=== PATIENT | male | born 1935 | race Caucasian/White ===

== ENCOUNTER 2021-09-19 15:43 | Emergency (ER) | payer OTHER, MEDICARE ==
[2021-09-19 16:27] LABS: HEMOGLOBIN 10.6 gm/dl (14.0-17.5); RED BLOOD COUNT 3.5 M/UL (4.20-5.50); WHITE BLOOD COUNT 8.6 K/UL (4.5-11.0)
== END 2021-09-20 04:55 | disposition home or self-care (01) ==
LOC: ER1 15:43
PROVIDERS: Physician Assistant
DX: T83.038A Leakage of other urinary catheter, initial encounter (principal); I12.9 Hypertensive chronic kidney disease with stage 1 through stage 4 chronic kidney disease, or unspecified chronic kidney disease; N18.9 Chronic kidney disease, unspecified; N13.9 Obstructive and reflux uropathy, unspecified; N13.2 Hydronephrosis with renal and ureteral calculous obstruction; K57.30 Diverticulosis of large intestine without perforation or abscess without bleeding; Z20.822 Contact with and (suspected) exposure to COVID-19; Z87.438 Personal history of other diseases of male genital organs; Z96.0 Presence of urogenital implants; Y83.8 Other surgical procedures as the cause of abnormal reaction of the patient, or of later complication, without mention of misadventure at the time of the procedure
CPT/HCPCS: 51702; 51798; 80053; 81001; 85025; 87077; 87086; 87186; 96374; 99284; J0696; U0002

== ENCOUNTER 2021-10-10 12:32 | Emergency (ER) | payer OTHER, MEDICARE ==
[2021-10-10 13:20] LABS: HEMOGLOBIN 9.8 gm/dl (14.0-17.5); RED BLOOD COUNT 3.14 M/UL (4.20-5.50); WHITE BLOOD COUNT 7.9 K/UL (4.5-11.0)
== END 2021-10-10 19:15 | disposition home or self-care (01) ==
LOC: ER1 12:32
PROVIDERS: Family Medicine
DX: T83.098A Other mechanical complication of other urinary catheter, initial encounter (principal); D64.9 Anemia, unspecified; R33.9 Retention of urine, unspecified; N18.9 Chronic kidney disease, unspecified; Z87.891 Personal history of nicotine dependence; Z79.82 Long term (current) use of aspirin
CPT/HCPCS: 80053; 81001; 85025; 99284

== ENCOUNTER 2021-10-15 17:42 | Inpatient (IN) | payer OTHER, MEDICARE ==
[~2021-10-15] VITALS: Ht 188 cm; Wt 72.6 kg
[2021-10-15 19:29] LABS: HEMOGLOBIN 10.9 gm/dl (14.0-17.5); RED BLOOD COUNT 3.54 M/UL (4.20-5.50); WHITE BLOOD COUNT 4.8 K/UL (4.5-11.0)
[2021-10-16] MEDS ORDERED: ASPIRIN EC81 MG PO (11:48)
[2021-10-16] MEDS ORDERED: FINASTERIDE5 MG PO (11:48)
[2021-10-16] MEDS ORDERED: DILTIAZEM 24HR240 M1 PO (11:48)
[2021-10-16] MEDS ORDERED: ISOSORBIDE MONO30 MG PO (11:49)
[2021-10-16] MEDS ORDERED: LEVOTHYROXINE50 MCG PO (11:49)
[2021-10-16] MEDS ORDERED: FLOMAX 0.4 MG0.4 MG PO (11:53)
[2021-10-17 03:25] LABS: HEMOGLOBIN 11.2 gm/dl (14.0-17.5); RED BLOOD COUNT 3.67 M/UL (4.20-5.50)
[2021-10-17 03:28] LABS: WHITE BLOOD COUNT 2.3 K/UL (4.5-11.0)
--- NOTE | 2021-10-17 17:34 | NUR ---
WHILE ON 3 E[address], PATIENT HAD A CONFUSED MOMENT AND BROKE HIS CATHETER, SO NO UOP DOCUMENTED FROM THEM DUE TO INABILITY TO MEASURE. DR KERN AWARE THAT THIS IS WHY NO UOP DOCUMENTED. PUT IN CONSULT FOR NEPHRO DUE TO MINIMAL TO NO UOP AND STAGE FOUR KIDNEY DISEASE.
[2021-10-19 04:16] LABS: RED BLOOD COUNT 3.05 M/UL (4.20-5.50); WHITE BLOOD COUNT 3.2 K/UL (4.5-11.0)
--- NOTE | 2021-10-21 14:11 | NUR ---
1410: PATIENT HAS BEEN DIFFICULT TO CONTROL SINCE APPROXIMATELY 0930. iT WORSEN TO THE POINT WITH LOW OXYGENATION LEVELS AT 1100, THAT RN HAD TO REQUEST SOMETHING FOR SEDATION. PATIENT APPEARS UNAFFECTED BY GEODONE 10 MG IM GIVEN AROUND 1100. SITTER HAS TO BE RIGHT BESIDE PATIENT TO KEEP OXYGEN INTACT AND PREVENT PATIENT DESATS. WILL CONTINUE TO MONITOR.
--- NOTE | 2021-10-21 16:11 | NUR ---
1530: RN DISCUSSED WITH DR KERN THE ACCURACY OF PATIENT'S SPO2 MONITORING, SPO2 NOTED 81 - 88% WHEN PATIENT WILL ACTUALLY KEEP SPO2 PROBE ON. PROBE WAS PLACED ON EAR, FINGER, FOREHEAD AND GREAT TOE WHICH HAS AN ABNORMALLY THICK NAILBED, IN AN EFFORT TO OBTAIN BETTER READING. PATIENT IS WARM, DRY AND PALE PINK, MUCOUS MEMBRANES ARE PINK, NO CYNOSIS NOTED AT ALL, PATIENT WITHOUT SHORTNESS OF AIR OR LABORED BREATHING. YELLING LOUDLY, TO DENOTE STRONG LUNG VOLUMES. WILL CONTNUE TO MONITOR. ONE TO ONE SITTER TO REMAIN IN PLACE.
[2021-10-22 08:00] LABS: HEMOGLOBIN 10.9 gm/dl (14.0-17.5); RED BLOOD COUNT 3.68 M/UL (4.20-5.50); WHITE BLOOD COUNT 8.1 K/UL (4.5-11.0)
--- NOTE | 2021-10-22 11:46 | NUR ---
RN AND STAFF UNABLE TO GET PATIENT TO TAKE ANYTHING BY MOUTH. MD AWARE. IV BP MEDS PRN NOW AVAILABLE.
[2021-10-23 06:16] LABS: HEMOGLOBIN 10.7 gm/dl (14.0-17.5); RED BLOOD COUNT 3.53 M/UL (4.20-5.50); WHITE BLOOD COUNT 9.9 K/UL (4.5-11.0)
--- NOTE | 2021-10-23 15:27 | NUR ---
PATIENT CONTINUES TO REFUSE TO TAKE ANYTHING BY MOUTH INCLUDING FOOD, DRINK, AND MEDICATIONS. PATIENT ALSO REPEATEDLY REMOVES HIGH FLOW NASAL CANNULA AND OXYGEN SATURATION DROPS INTO LOW 70'S IF REMOVED. STAFF MUST REAPPLY OXYGEN NEEDED. SITTER IN PLACE. RN NOTIFIED MD OF PATIENT'S CONTINUED REFUSAL OF CARE. MD VERBALIZED UNDERSTANDING. NO NEW ORDERS NOTED.
[2021-10-24 14:14] LABS: A/G RATIO 1.3 (0.7-1.7); ALBUMIN 3.3 g/dL (2.9-4.4); ALPHA-1-GLOBULIN 0.3 g/dL (0.0-0.4); ALPHA-2-GLOBULIN 0.7 g/dL (0.4-1.0); BETA GLOBULIN 0.8 g/dL (0.7-1.3); GAMMA GLOBULIN 0.8 g/dL (0.4-1.8); GLOBULIN, TOTAL 2.6 g/dL (2.2-3.9); IMMUNOFIXATION RESULT, SERUM Comment: (.); IMMUNOGLOBULIN A, QN, SERUM 430 mg/dL (61-437); IMMUNOGLOBULIN G, QN, SERUM 875 mg/dL (603-1613); IMMUNOGLOBULIN M, QN, SERUM 52 mg/dL (15-143); M-SPIKE Not Observed g/dL (Not Observed); PROTEIN, TOTAL, SERUM 5.9 g/dL (6.0-8.5)
--- NOTE | 2021-10-26 12:30 | NUR ---
1210- NOTIFIED DR SILVER OF PATIENT NOTED LETHARGIC. VITAL SIGNS WITHIN NORMAL LIMITS. MD STATED WOULD PUT IN FOR HEAD CT. WILL CONTINUE TO MONITOR.
--- NOTE | 2021-10-26 14:37 | NUR ---
1342- NOTIFIED DR SILVER OF PATIENT TEMP READING 93.4 RECTAL AT THIS TIME AND CONTINUE OF PATIENT BEING LETHARGIC. NEW ORDER FOR DMITRY JUSTIN AND BEBETO AT THIS TIME. PULMONARY CONSULT ORDERED.
--- NOTE | 2021-10-26 15:52 | NUR ---
@1400 DMITRY HUGGER PLACED ON PATIENT PER MD ORDER WCTM
--- NOTE | 2021-10-27 09:00 | NUR ---
PATIENT'S GUTIERREZ CATH HAD COME UNHOOKED, SOME URINE LEAKED IN THE BED AND NOT MEASURED.
--- NOTE | 2021-10-27 12:25 | NUR ---
SPOKE WITH PATIENT'S FAMILY ABOUT STATUS AND PLAN OF CARE.
--- NOTE | 2021-10-28 18:18 | NUR ---
FAMILY CAME TO STAY AT PATIENT'S BEDSIDED. I UPDATED HIM ON THE PATIENT'S STATUS AND PLAN OF CARE.
== END 2021-10-29 11:14 | disposition expired | DRG 177 ==
LOC: ER1 17:42 → MED SURG 4 10-16 02:39 → CDU 10-16 02:39 → 3 EAST 10-16 02:39 → MED SURG 4 10-17 16:20
PROVIDERS: Internal Medicine; Internal Medicine Nephrology; Physician Assistant; ADMIT Internal Medicine
PROC: 3E0333Z Introduction of Anti-inflammatory into Peripheral Vein, Percutaneous Approach (ICD-10-PCS; principal; 2021-10-16)
PROC: 8E0ZXY6 Isolation (ICD-10-PCS; 2021-10-16)
PROC: B24BZZ4 Ultrasonography of Heart with Aorta, Transesophageal (ICD-10-PCS; 2021-10-17)
PROC: 5A0935A Assistance with Respiratory Ventilation, Less than 24 Consecutive Hours, High Flow/Velocity Cannula (ICD-10-PCS; 2021-10-17)
DX: U07.1 COVID-19 (principal); J80 Acute respiratory distress syndrome; J12.82 Pneumonia due to coronavirus disease 2019; G93.41 Metabolic encephalopathy; N17.9 Acute kidney failure, unspecified; N18.4 Chronic kidney disease, stage 4 (severe); E87.2 Acidosis; I48.20 Chronic atrial fibrillation, unspecified; E87.1 Hypo-osmolality and hyponatremia; N13.30 Unspecified hydronephrosis; I13.0 Hypertensive heart and chronic kidney disease with heart failure and stage 1 through stage 4 chronic kidney disease, or unspecified chronic kidney disease; Z66 Do not resuscitate; R31.9 Hematuria, unspecified; E87.6 Hypokalemia; I08.3 Combined rheumatic disorders of mitral, aortic and tricuspid valves; N40.0 Benign prostatic hyperplasia without lower urinary tract symptoms; J40 Bronchitis, not specified as acute or chronic; I50.9 Heart failure, unspecified; Z79.01 Long term (current) use of anticoagulants; Z87.442 Personal history of urinary calculi; Z87.891 Personal history of nicotine dependence
CPT/HCPCS: ECHO; 0240U; 36415; 36600; 70450; 71045; 80048; 80053; 80202; 81001; 82330; 82397; 82550; 82553; 82784; 82803; 83615; 83735; 83874; 83880; 83883; 84133; 84155; 84165; 84300; 84439; 84443; 84484; 85025; 85379; 85610; 85730; 86140; 86334; 87086; 92610; 93005; 93306; 94640; 94760; 96374; 96375; 96376; 97110; 97162; 97530; 97530-GP-CQ; 99285; J0360; J0696; J1100; J2185; J2920; J3370; J3486; J7070; P9047